=== PATIENT | female | born 1980 ===

== ENCOUNTER 2024-05-25 17:33 | Outpatient (REF) | payer MEDICAID, SELFPAY ==
[2024-05-29 21:32] LABS: C. trachomatis RNA TMA NOT DETECTED (NOT DETECTED); N. gonorrhoeae RNA TMA NOT DETECTED (NOT DETECTED)
[2024-05-29 22:24] LABS: Trichomonas (NAAT) NOT DETECTED (NOT DETECTED)
== END 2024-05-25 17:34 | disposition home or self-care (01) ==
LOC: HO.HHCLNP 17:33
PROVIDERS: Visit Provider Advanced Practice Midwife
DX: Z11.3 Encounter for screening for infections with a predominantly sexual mode of transmission (principal); Z12.4 Encounter for screening for malignant neoplasm of cervix; R87.610 Atypical squamous cells of undetermined significance on cytologic smear of cervix (ASC-US); R87.615 Unsatisfactory cytologic smear of cervix
CPT/HCPCS: 87491; 87591; 87661; 88175